=== PATIENT | male | born 1940 | race Two or more races ===

== ENCOUNTER 2023-06-27 11:08 | Emergency (ER) | payer OTHER ==
[~2023-06-27] VITALS: Ht 172.7 cm; Wt 74.8 kg
[2023-06-27] MEDS ORDERED: VAZALORE81 MG PO (11:26)
[2023-06-27] MEDS ORDERED: AMILORIDE HCL5 MG PO (11:26)
== END 2023-06-27 15:58 | disposition home or self-care (01) ==
LOC: ER 11:09
DX: S90.32XA Contusion of left foot, initial encounter (principal); W20.8XXA Other cause of strike by thrown, projected or falling object, initial encounter; Y93.89 Activity, other specified; Y92.89 Other specified places as the place of occurrence of the external cause; M19.90 Unspecified osteoarthritis, unspecified site